=== PATIENT | male | born 1985 | race Caucasian/White ===

== ENCOUNTER 2018-01-11 17:24 | Emergency (ER) | payer MEDICARE ==
[2018-01-11] MEDS: NAPROXEN 250 MG TAB PO (20:02)
== END 2018-01-11 20:34 | disposition home or self-care (01) ==
LOC: M ED 17:24
DX: M75.102 Unspecified rotator cuff tear or rupture of left shoulder, not specified as traumatic (principal); Z87.820 Personal history of traumatic brain injury; M54.9 Dorsalgia, unspecified; Z72.0 Tobacco use
CPT/HCPCS: 73030